=== PATIENT | male | born 1970 | race Caucasian/White ===

== ENCOUNTER 2021-01-05 17:38 | Emergency (ER) | payer OTHER ==
[~2021-01-05] VITALS: Ht 177 cm; Wt 79.0 kg
[2021-01-05] MEDS ORDERED: NS IV 1000 ML 1,000 ML IV ONE (18:00)
--- NOTE | 2021-01-05 18:03 | ED GU-Male ---
General Chief Complaint: - Urinary Stated Complaint: GROIN BURNING,RT LOWER BACK PAIN History of Present Illness Date Seen by Provider: Jan 05, 2021 Time Seen by Provider: 17:58 Initial Comments Mr. Hernandez is a 50-year-old male who presented to the [facility] ED for back and groin pain. He states he has been having right-sided back pain for about 1 week but 2-3 hours ago he had "burning at the tip of my weiner" with severe right back pain. He has a history of kidney stones in the past and states this feels similar to previous occurrences. He states he was unable to drive himself to the ED and required assistance getting here. Prior to coming, his pain was an 8/10 but is now 2-3/10. He has some associated nausea without vomiting. Denies hematuria or dysuria, chest pain, shortness of breath, difficulty swallowing, but does admit to feeling "hot". His previous kidney stones did not require any procedures or stent placements to assist with passage of the stone. Severity/Quality: moderate Location: right flank Radiation: RLQ Activities at Onset: none Prior Genitourinary Problems: similar symptoms Associated Symptoms: diaphoresis, fever/chills (MAIDA SWANSON,) Allergies and Home Medications Allergies Coded Allergies: No Known Drug Allergies (Unverified , 01/05/21) Patient Home Medication List Home Medication List Reviewed: Yes (MAIDA SWANSON,) Home Medication List Reviewed: Yes (SIENNA SILVEIRA MD) Review of Systems Review of Systems Constitutional: diaphoresis EENTM: No blurred vision, No throat swelling Respiratory: No cough, No short of breath Cardiovascular: No chest pain, No palpitations Gastrointestinal: abdominal pain (RLQ), nausea Genitourinary: burning; denies hematuria Musculoskeletal: back pain Skin: No dryness, No rash Psychiatric/Neurological: No Symptoms Reported Endocrine: No Symptoms Reported (MAIDA SWANSON,) Constitutional: No chills, No fever Gastrointestinal: abdominal pain (RLQ), nausea Genitourinary: burning; denies hematuria (SIENNA SILVEIRA MD) All Other Systemes Reviewed Negative Unless Noted: Yes (SIENNA SILVEIRA MD) Past Qpxymlr-Imzpje-Ymgwfi Hx Past Med/Social Hx: Reviewed Nursing Past Med/Soc Hx (SIENNA SILVEIRA MD) Patient Social History Alcohol Use: Denies Use Smoking Status: Never a Smoker (MAIDA SWANSON,) Past Medical History Orthopedic (right knee laparoscopy 09/2020) Respiratory: No Cardiac: Yes Hypertension Neurological: No Genitourinary: Yes Kidney Stones Gastrointestinal: No Musculoskeletal: Yes Chronic Back Pain Endocrine: No HEENT: No Cancer: No Psychosocial: No (MAIDA SWANSON,) Family Medical History Reviewed Nursing Family Hx (SIENNA SILVEIRA MD) Heart Disease (MAIDA SWANSON,) Physical Exam Vital Signs Vital Signs - First Documented 01/05/21 17:41 Temp 36.7 Pulse 90 Resp 16 B/P (MAP) 138/69 (92) Pulse Ox 98 O2 Delivery Room Air (SIENNA SILVEIRA MD) Vital Signs Capillary Refill : (MAIDA SWANSON) Height, Weight, BMI Height: '" Weight: lbs. oz. kg; BMI Method: General Appearance: WD/WN, no apparent distress HEENT: PERRL/EOMI Neck: supple, normal inspection Cardiovascular: regular rate, rhythm, no murmur Respiratory: lungs clear, normal breath sounds Gastrointestinal: normal bowel sounds, non tender Back: normal inspection, no CVA tenderness Extremities: no pedal edema, normal capillary refill Neurologic/Psychiatric: alert, oriented x 3 Skin: normal color, warm/dry (MAIDA SWANSON) General Appearance: WD/WN Cardiovascular: regular rate, rhythm, no murmur Respiratory: lungs clear, normal breath sounds Gastrointestinal: non tender, soft Back: no CVA tenderness, no vertebral tenderness Neurologic/Psychiatric: alert, oriented x 3 (SIENNA SILVEIRA MD) Progress/Results/Core Measures Suspected Sepsis SIRS Temperature: Pulse: Respiratory Rate: Blood Pressure / Mean: (MAIDA SWANSON,) Results/Orders Lab Results Laboratory Tests Test 01/05/21 17:41 01/05/21 17:53 Range/Units Urine Color YELLOW Urine Clarity CLEAR Urine pH 6.0 5-9 Urine Specific Dewar 1.020 1.016-1.022 Urine Protein NEGATIVE NEGATIVE Urine Glucose (UA) NEGATIVE NEGATIVE Urine Ketones NEGATIVE NEGATIVE Urine Nitrite NEGATIVE NEGATIVE Urine Bilirubin NEGATIVE NEGATIVE Urine Urobilinogen 0.2 < = 1.0 MG/DL Urine Leukocyte Esterase NEGATIVE NEGATIVE Urine RBC (Auto) 1+ H NEGATIVE Urine RBC RARE /HPF Urine WBC RARE /HPF Urine Squamous Epithelial Cells RARE /HPF Urine Crystals NONE /LPF Urine Bacteria NEGATIVE /HPF Urine Casts NONE /LPF Urine Mucus SMALL H /LPF Urine Culture Indicated NO White Blood Count 5.2 4.3-11.0 10^3/uL Red Blood Count 5.05 4.35-5.85 10^6/uL Hemoglobin 14.0 13.3-17.7 G/DL Hematocrit 42 40-54 % Mean Corpuscular Volume 82 80-99 FL Mean Corpuscular Hemoglobin 28 25-34 PG Mean Corpuscular Hemoglobin Concent 34 32-36 G/DL Red Cell Distribution Width 12.9 10.0-14.5 % Platelet Count 87 L 130-400 10^3/uL Mean Platelet Volume 11.3 H 7.4-10.4 FL Immature Granulocyte % (Auto) 1 % Neutrophils (%) (Auto) 37 L 42-75 % Lymphocytes (%) (Auto) 41 12-44 % Monocytes (%) (Auto) 13 H 0-12 % Eosinophils (%) (Auto) 7 0-10 % Basophils (%) (Auto) 0 0-10 % Neutrophils # (Auto) 1.9 1.8-7.8 X 10^3 Lymphocytes # (Auto) 2.1 1.0-4.0 X 10^3 Monocytes # (Auto) 0.7 0.0-1.0 X 10^3 Eosinophils # (Auto) 0.4 H 0.0-0.3 10^3/uL Basophils # (Auto) 0.0 0.0-0.1 10^3/uL Immature Granulocyte # (Auto) 0.1 0.0-0.1 10^3/uL Sodium Level 135 135-145 MMOL/L Potassium Level 4.9 3.6-5.0 MMOL/L Chloride Level 101 98-107 MMOL/L Carbon Dioxide Level 22 21-32 MMOL/L Anion Gap 12 5-14 MMOL/L Blood Urea Nitrogen 20 H 7-18 MG/DL Creatinine 1.03 0.60-1.30 MG/DL Estimat Glomerular Filtration Rate > 60 BUN/Creatinine Ratio 19 Glucose Level 123 H 70-105 MG/DL Calcium Level 9.3 8.5-10.1 MG/DL Corrected Calcium 9.0 8.5-10.1 MG/DL Total Bilirubin < 0.2 0.1-1.0 MG/DL Aspartate Amino Transf (AST/SGOT) 32 5-34 U/L Alanine Aminotransferase (ALT/SGPT) 40 0-55 U/L Alkaline Phosphatase 71 40-136 U/L Total Protein 7.3 6.4-8.2 GM/DL Albumin 4.4 3.2-4.5 GM/DL (SIENNA SILVEIRA MD) My Orders Orders - SIENNA SILVEIRA MD Cbc With Automated Diff (01/05/21 17:55) Comprehensive Metabolic Panel (01/05/21 17:55) Ua Culture If Indicated (01/05/21 17:55) Ed Iv/Invasive Line Start (01/05/21 17:55) Ns Iv 1000 Ml (Sodium Chloride 0.9%) (01/05/21 18:00) Ct Abdomen/Pelvis Wo (01/05/21 17:55) Phenazopyridine Tablet (Pyridium Tablet) (01/05/21 18:15) (SIENNA SILVEIRA MD) Medications Given in ED Current Medications Medications Dose Ordered Sig/Tracy Route Start Time Stop Time Status Last Admin Dose Admin Phenazopyridine HCl 100 mg ONCE ONCE PO 01/05/21 18:15 01/05/21 18:16 DC 01/05/21 18:21 100 MG Sodium Chloride 1,000 ml @ 0 mls/hr Q0M ONCE IV 01/05/21 18:00 01/05/21 18:01 DC 01/05/21 18:07 1,000 MLS/HR (SIENNA SILVEIRA MD) Vital Signs/I&O 01/05/21 17:41 Temp 36.7 Pulse 90 Resp 16 B/P (MAP) 138/69 (92) Pulse Ox 98 O2 Delivery Room Air (SIENNA SILVEIRA MD) Vital Signs/I&O Capillary Refill : (MAIDA SWANSON,) Progress Note : Time: 18:05 Progress Note Due to patient having a history of kidney stones, will order non-contrast CT for further work up along with CBC, CMP, UA. As of now, patient denies being in severe pain. Will monitor for development. Start NS for hydration. (MAIDA SWANSON,) Progress Note : Progress Note I have seen and evaluated the patient and agree with above except as indicated. I have directed the plan of care. Patient is here with flank pain and penile pain after urination. Does have history of kidney stones and feels like this may be what the problem is. Denies blood in the urine. Evaluation as above. We will check labs, UA and get noncontrast CT. Pain is markedly improved. Normal saline 1 L bolus. No indication for pain medicine currently. Monitor patient. 1919: Stone noted and pain is resolved. Stone is in the bladder. We will initiate outpatient antibiotics. Discharged home with return precautions. Patient and family verbalized understanding of instructions and agreement with plan. (SIENNA SILVEIRA MD) Diagnostic Imaging Diagonstic Imaging: CT Plain Films/CT/US/NM/MRI: abdomen Comments [facility], [place] NAME: COURTNEY HERNANDEZ [facility] REC#: [id number] PT STATUS: REG ER : 1970 PHYSICIAN: SIENNA SILVEIRA MD ADMIT DATE: 01/05/21/ER FS Draft Date of Exam:01/05/21 CT ABDOMEN/PELVIS WO PROCEDURE: CT abdomen and pelvis without contrast. TECHNIQUE: Multiple contiguous axial images were obtained through the abdomen and pelvis without the use of intravenous contrast. Auto Exposure Controls were utilized during the CT exam to meet ALARA standards for radiation dose reduction. INDICATION: Right low back pain. History of kidney stones. COMPARISON: None FINDINGS: The lung bases are clear. The heart is normal in size. The liver demonstrates no focal lesions. The spleen appears normal. A small splenule is noted. The pancreas is normal. The adrenal glands appear normal. There is no significant hydronephrosis bilaterally. Multiple calculi are seen in the kidneys bilaterally which are nonobstructing, largest on the right measuring up to 4 mm and the largest on the left measuring up to 3 mm. No calculi are seen along the course of the ureters bilaterally. There is a 3 mm calculus in the midline of the bladder near the outlet The bowel loops are nondistended without obstruction. The appendix is not seen. No free fluid or free air is seen. No acute osseous abnormality seen. IMPRESSION: 1. A 3 mm calculus in the midline of the urinary bladder, may represent a recently passed stone. 2. Multiple nonobstructing calculi in the kidneys bilaterally. Dictated on workstation # [id number] Dict: 01/05/21 1825 Trans: 01/05/21 1840 VIRAL [id number] Interpreted by: COURTNEY MCINTYRE MD Electronically signed by: (SIENNA SILVEIRA MD) Departure Impression Primary Impression: Kidney stones Disposition: HOME, SELF-CARE Condition: Improved Departure-Patient Inst. Referrals: OTHER,UNLISTED (PCP) Primary Care Physician ANANYA VILLELA (Family) Primary Care Physician Patient Instructions: Kidney Stones (DC), How to Strain Your Urine Add. Discharge Instructions: All discharge instructions reviewed with patient and/or family. Voiced understanding. Take medications as directed. Continue home medications as previously prescribed. Drink plenty of fluids. Follow-up with your doctor and urologist for recheck and further evaluation. You should strain your urine to evaluate when stone is passed. Return for worse pain, fever, vomiting, weakness, breathing problems or other concerns as needed. Scripts Cephalexin (Cephalexin) 500 Mg Tablet 500 MG PO BID, #14 TAB 0 Refills Prov: SIENNA SILVEIRA MD 01/05/21 MAIDA SWANSON, Jan 05, 2021 18:03 SIENNA SILVEIRA MD Jan 05, 2021 18:53
[2021-01-05 18:13] LABS: HEMATOCRIT 42 % (40-54); MEAN CORPUSCULAR HEMOGLOBIN 28 PG (25-34); MEAN CORPUSCULAR VOLUME 82 FL (80-99); WHITE BLOOD COUNT 5.2 10^3/uL (4.3-11.0)
[2021-01-05 18:14] LABS: BASOPHILS % (AUTO) 0 % (0-10); EOSINOPHILS % (AUTO) 7 % (0-10); LYMPHOCYTES % (AUTO) 41 % (12-44); MEAN CORPUSCULAR HGB CONC 34 G/DL (32-36); MEAN PLATELET VOLUME 11.3 FL (7.4-10.4); MONOCYTES % (AUTO) 13 % (0-12); NEUTROPHILS % (AUTO) 37 % (42-75); PLATELET COUNT 87 10^3/uL (130-400)
[2021-01-05 18:15] LABS: CLARITY,URINE CLEAR; COLOR,URINE YELLOW; GLUCOSE, URINE (UA) NEGATIVE (NEGATIVE); PROTEIN,URINE NEGATIVE (NEGATIVE)
[2021-01-05 18:15] LABS: EOSINOPHILS # (AUTO) 0.4 10^3/uL (0.0-0.3); LYMPHOCYTES # (AUTO) 2.1 X 10^3 (1.0-4.0); MONOCYTES # (AUTO) 0.7 X 10^3 (0.0-1.0); NEUTROPHILS # (AUTO) 1.9 X 10^3 (1.8-7.8)
[2021-01-05] MEDS ORDERED: PHENAZOPYRIDINE 100 MG (PYRIDIUM) TABLET PO ONE (18:15)
[2021-01-05 18:16] LABS: BACTERIA,URINE NEGATIVE /HPF; BILIRUBIN,URINE NEGATIVE (NEGATIVE); KETONES,URINE NEGATIVE (NEGATIVE); LEUKOCYTE ESTERASE ,URINE NEGATIVE (NEGATIVE); NITRITE,URINE NEGATIVE (NEGATIVE); RBC,URINE RARE /HPF; SQUAMOUS EPITHELIAL CELL,UR RARE /HPF; WBC,URINE RARE /HPF
[2021-01-05 18:29] LABS: CHLORIDE 101 MMOL/L (98-107); POTASSIUM 4.9 MMOL/L (3.6-5.0); SODIUM 135 MMOL/L (135-145)
[2021-01-05 18:30] LABS: ALANINE AMINOTRANSFERASE 40 U/L (0-55); ALBUMIN 4.4 GM/DL (3.2-4.5); ALKALINE PHOSPHATASE 71 U/L (40-136); BILIRUBIN,TOTAL < 0.2 MG/DL (0.1-1.0); BUN/CREATININE RATIO 19; CALCIUM 9.3 MG/DL (8.5-10.1); CARBON DIOXIDE 22 MMOL/L (21-32); CREATININE SERUM 1.03 MG/DL (0.60-1.30); GFR ESTIMATED > 60; GLUCOSE 123 MG/DL (70-105); TOTAL PROTEIN 7.3 GM/DL (6.4-8.2)
--- NOTE | 2021-01-05 18:40 | Diagnostic Imaging Report ---
PROCEDURE: CT abdomen and pelvis without contrast. TECHNIQUE: Multiple contiguous axial images were obtained through the abdomen and pelvis without the use of intravenous contrast. Auto Exposure Controls were utilized during the CT exam to meet ALARA standards for radiation dose reduction. INDICATION: Right low back pain. History of kidney stones. COMPARISON: None FINDINGS: The lung bases are clear. The heart is normal in size. The liver demonstrates no focal lesions. The spleen appears normal. A small splenule is noted. The pancreas is normal. The adrenal glands appear normal. There is no significant hydronephrosis bilaterally. Multiple calculi are seen in the kidneys bilaterally which are nonobstructing, largest on the right measuring up to 4 mm and the largest on the left measuring up to 3 mm. No calculi are seen along the course of the ureters bilaterally. There is a 3 mm calculus in the midline of the bladder near the outlet The bowel loops are nondistended without obstruction. The appendix is not seen. No free fluid or free air is seen. No acute osseous abnormality seen. IMPRESSION: 1. A 3 mm calculus in the midline of the urinary bladder, may represent a recently passed stone. 2. Multiple nonobstructing calculi in the kidneys bilaterally. Dictated by: Dictated on workstation # [id number]
[2021-01-05] MEDS ORDERED: CEPH500T PO (19:29)
[2021-01-05 19:31] VITALS: BP 130/89
== END 2021-01-05 19:34 | disposition home or self-care (01) ==
LOC: EDUNIT# 17:38 → ER FS 17:40
DX: N20.0 Calculus of kidney (principal); Z82.49 Family history of ischemic heart disease and other diseases of the circulatory system
CPT/HCPCS: 36415; 74176; 80053; 81000; 85025

== ENCOUNTER 2021-08-15 08:07 | Emergency (ER) | payer OTHER ==
[~2021-08-15] VITALS: Ht 172 cm; Wt 100.0 kg
[~2021-08-15 08:07] MED LIST: CEPH500T PO
--- NOTE | 2021-08-15 08:39 | ED General ---
General Chief Complaint: Lower Extremity Stated Complaint: LT KNEE INJ Nursing Triage Note: PTS LEFT KNEE GAVE OUT ON HIM SATURDAY AND HE HIT IT ON THE GROUND. Source of Information: Patient History of Present Illness Date Seen by Provider: Aug 15, 2021 Time Seen by Provider: 08:21 Initial Comments 51-year-old male presenting with complaints of left knee pain. He states on Saturday, August 12 he was walking across a room on hardwood floor and his knee suddenly went out on him. He had a loud popping or cracking noise. He has had severe pain ever since. He has been able to bear weight on the leg. He does have chronic arthritis with both knees. He has been using Alejandro bandage for support with his knee. He states that majority of the pain is along the back of his knee and the lateral aspect. The pain is worse when he tries to bear weight and he occasionally has the knee feel like it is going to give out on him again. With certain movements and positions he has increased pain. He has been [facility] and he also has tramadol for severe pain. [facility] about [facility] and they recommended coming to the emergency department. Timing/Duration: 2-3 Days Severity: Severe Modifying Factors: improves with Medication; worse with Movement Associated Systoms: No Chest Pain, No Cough, No Diaphoresis, No Fever/Chills, No Headaches, No Loss of Appetite, No Malaise, No Nausea/Vomiting, No Rash, No Seizure, No Shortness of Air, No Syncope, No Weakness Allergies and Home Medications Allergies Coded Allergies: No Known Drug Allergies (Unverified , 01/05/21) Patient Home Medication List Home Medication List Reviewed: Yes Cephalexin (Cephalexin) 500 Mg Tablet, 500 MG PO BID Prescribed by: SIENNA SILVEIRA on 01/05/211928 Review of Systems Review of Systems Constitutional: no symptoms reported EENTM: no symptoms reported Respiratory: no symptoms reported Cardiovascular: no symptoms reported Gastrointestinal: no symptoms reported Genitourinary: no symptoms reported Musculoskeletal: see HPI Skin: No change in color Psychiatric/Neurological: Denies Numbness Past Bdzkqnd-Tbfrfq-Wawxhk Hx Patient Social History Tobacco Use?: No Use of E-Cig and/or Vaping dev: No Substance use?: No Alcohol Use?: No Pt feels they are or have been: No Immunizations Up To Date First/Initial COVID19 Vaccinat: AUG 2020 COVID19 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: ILIANA Seasonal Allergies Seasonal Allergies: No Past Medical History Surgeries: Yes (KNEE) Appendectomy, Orthopedic Respiratory: No Cardiac: Yes Coronary Artery Disease, High Cholesterol, Hypertension Neurological: No Genitourinary: Yes Kidney Stones Gastrointestinal: No Musculoskeletal: Yes Arthritis (Bilateral knees), Chronic Back Pain Endocrine: No HEENT: No Cancer: No Psychosocial: No Blood Disorders: No Family Medical History Heart Disease Physical Exam Vital Signs Vital Signs - First Documented 08/15/21 08:20 Temp 36.1 Pulse 84 Resp 18 B/P (MAP) 164/94 (117) Pulse Ox 97 O2 Delivery Room Air Capillary Refill : Less Than 3 Seconds Height, Weight, BMI Height: '" Weight: lbs. oz. kg; 33.00 BMI Method: General Appearance: No Apparent Distress, WD/WN Cardiovascular: Normal Peripheral Pulses Extremity: Normal Capillary Refill, No Calf Tenderness, No Pedal Edema; No Swelling (no joint effusion, swelling, edema, ecchymosis, erythema); Other (Normal range of motion of the left knee with negative anterior and posterior drawer sign. He has no increased pain with varus or valgus stress. He does have laxity with stress in both varus and valgus positions.) Neurologic/Psychiatric: Alert, Oriented x3, No Motor/Sensory Deficits, automated process operator II- XII Norm as Tested Skin: Normal Color, Warm/Dry Procedures/Interventions Splinting and Joint Reduction : Location: Left lower extremity Pre-Proc Neuro Vasc Exam: normal Post-Proc Neuro Vasc Exam: normal Progress Patient already had his Alejandro bandage from home on his left knee and a knee immobilizer was placed over this. Patient stated that this did help improve his pain. Counseled on follow-up and return precautions. Immobilizers: 24 inch Knee Progress/Results/Core Measures Suspected Sepsis SIRS Temperature: Pulse: 84 Respiratory Rate: 18 Blood Pressure 164 /94 Mean: 117 Results/Orders My Orders Orders - SARAY CÁRDENAS MD Knee 3 View Left (08/15/21 08:33) Knee Immobilizer (08/15/21 08:33) Vital Signs/I&O 08/15/21 08/15/21 08:20 09:49 Temp 36.1 36.1 Pulse 84 80 Resp 18 18 B/P (MAP) 164/94 (117) 158/88 Pulse Ox 97 99 O2 Delivery Room Air Room Air Capillary Refill : Less Than 3 Seconds Blood Pressure Mean: 117 Progress Note #1: Progress Note With his fall and increased pain will obtain x-rays for evaluating his knee for bony injury. Advised that he may end up needing an MRI with orthopedics or his primary. We will anticipate placing patient in a knee immobilizer for additional stabilization beyond the Alejandro bandage he has been using. Progress Note #2: Progress Note X-rays did not show any acute bony fracture of the left knee. He was having pain in the lateral and posterior aspect not over the patella however the radiologist was concerned there could be some chronic changes to the patella. Counseled patient on findings and advised that MRI with the [facility] with orthopedics would be the next step. In the meantime we will treat with Alejandro bandage and knee immobilizer to help stabilize his knee. Continue with anti- inflammatories of diclofenac that he already takes at home and occasional ibuprofen. For severe pain in the tramadol. Ice and elevate the knee to help with inflammation and pain as well. Diagnostic Imaging Diagonstic Imaging: Xray Plain Films/CT/US/NM/MRI: knee Comments [facility] [place], [place] NAME: COURTNEY HERNANDEZ [facility] REC#: [id number] PT STATUS: REG ER : 1970 PHYSICIAN: SARAY CÁRDENAS MD ADMIT DATE: 08/15/21/ER FS Draft Date of Exam:08/15/21 KNEE 3 VIEW LEFT INDICATION: Knee pain. Recent fall. COMPARISON: None FINDINGS: Multiple radiographic views of the left knee were obtained. There is somewhat irregular appearance to the superolateral margins of the patella, only well visualized on the AP view. Margins are well-corticated. Overall appearance is suggestive of chronic deformity. No other acute appearing osseous abnormality is seen. Joint spaces are intact. There is no large joint effusion. Mild tricompartmental osteoarthritic changes are also present. IMPRESSION: 1. Probable chronic deformity involving the superolateral margins of the patella. Correlation with point tenderness, however is recommended. If there is pain in this area, sunrise view may be of benefit. 2. Background mild tricompartmental osteoarthritis. Dictated on workstation # [id number] Dict: 08/15/21902 Trans: 08/15/21906 [id number] Interpreted by: RAMON ASHRAF MD Electronically signed by: Reviewed: Reviewed by Me Departure Impression Primary Impression: Left lateral knee pain Additional Impressions: Posterior left knee pain Fall Qualified Codes: W19.XXXA - Unspecified fall, initial encounter Disposition: HOME, SELF-CARE Condition: Stable Departure-Patient Inst. Decision time for Depature: 09:38 Referrals: ANANYA VILLELA (PCP) Primary Care Physician NO,LOCAL PHYSICIAN (Family) Primary Care Physician Patient Instructions: Knee Brace ED, Knee Pain ED Add. Discharge Instructions: Use knee immobilizer to give additional support to your knee. Some people find it helpful to wear this while sleeping as well so that it is giving support and helps when you get up to use the bathroom overnight. Continue with anti-inflammatory medicine and tramadol for severe pain. Check with [facility] about MRI or Orthopedics consult to evaluate for soft tissue injury such as meniscus or tendon/ligament partial tear. All discharge instructions reviewed with patient and/or family. Voiced understanding. SARAY CÁRDENAS MD Aug 15, 2021 08:39
--- NOTE | 2021-08-15 09:07 | Diagnostic Imaging Report ---
INDICATION: Knee pain. Recent fall. COMPARISON: None FINDINGS: Multiple radiographic views of the left knee were obtained. There is somewhat irregular appearance to the superolateral margins of the patella, only well visualized on the AP view. Margins are well-corticated. Overall appearance is suggestive of chronic deformity. No other acute appearing osseous abnormality is seen. Joint spaces are intact. There is no large joint effusion. Mild tricompartmental osteoarthritic changes are also present. IMPRESSION: 1. Probable chronic deformity involving the superolateral margins of the patella. Correlation with point tenderness, however is recommended. If there is pain in this area, sunrise view may be of benefit. 2. Background mild tricompartmental osteoarthritis. Dictated by: Dictated on workstation # [id number]
[2021-08-15 09:49] VITALS: BP 158/88
== END 2021-08-15 09:47 | disposition home or self-care (01) ==
LOC: EDUNIT# 08:07 → ER FS 08:09
DX: M25.562 Pain in left knee (principal); I10 Essential (primary) hypertension
CPT/HCPCS: 73562

== ENCOUNTER 2021-08-22 08:18 | Emergency (ER) | payer OTHER ==
[~2021-08-22] VITALS: Ht 172 cm; Wt 100.0 kg
--- NOTE | 2021-08-22 08:59 | ED Cough/URI ---
General Chief Complaint: Cough/Cold/Flu Symptoms Stated Complaint: SWOLLEN LYMPH NODES; COUGH; NASAL DRAINAGE; FEVER Source: patient Exam Limitations: no limitations History of Present Illness Date Seen by Provider: Aug 22, 2021 Time Seen by Provider: 08:30 Initial Comments Patient is a 51-year-old male who presents with a temperature of 101.9, cough, sore throat, nasal congestion painful swallowing. Symptoms began 3 days ago. Reports difficulty swallowing secondary to pain and swollen lymph nodes. Denies shortness of breath wheezing, productive cough. Patient is vaccinated with a JJ vaccine in the spring 2020. He has not been treated for Covid. Denies chest pain chest tightness, abdominal pain nausea vomiting sweats. No leg pain or swelling. No other acute symptoms or complaints. Patient was evaluated at the [place] [facility] referred to the ED for additional evaluation. Timing/Duration: getting worse Severity/Quality: dry cough Prior Episodes/Possible Cause: other Modifying Factors: Improves With Other Associated Symptoms: other Allergies and Home Medications Allergies Coded Allergies: No Known Drug Allergies (Unverified , 01/05/21) Patient Home Medication List Home Medication List Reviewed: Yes Cephalexin (Cephalexin) 500 Mg Tablet, 500 MG PO BID Prescribed by: SIENNA SILVEIRA on 01/05/211928 Review of Systems Review of Systems Constitutional: see HPI EENTM: see HPI Respiratory: see HPI Cardiovascular: see HPI Gastrointestinal: see HPI Genitourinary: see HPI Musculoskeletal: see HPI Skin: see HPI Psychiatric/Neurological: See HPI Hematologic/Lymphatic: See HPI Immunological/Allergic: see HPI Past Bznmgvo-Rcfimo-Papsxk Hx Patient Social History Tobacco Use?: Yes Smoking Status: Never a Smoker Substance use?: No Alcohol Use?: Yes Alcohol Frequency: Rarely Pt feels they are or have been: No Immunizations Up To Date First/Initial COVID19 Vaccinat: December 2020 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: [employer] Seasonal Allergies Seasonal Allergies: No Past Medical History Surgeries: Yes (KNEE) Appendectomy, Orthopedic Respiratory: No Cardiac: Yes Coronary Artery Disease, High Cholesterol, Hypertension Neurological: No Genitourinary: Yes Kidney Stones Gastrointestinal: No Musculoskeletal: Yes Arthritis, Chronic Back Pain Endocrine: No HEENT: No Cancer: No Psychosocial: No Blood Disorders: No Family Medical History Heart Disease Physical Exam Vital Signs - First Documented 08/22/21 08:37 Temp 36.4 Pulse 92 Resp 13 B/P (MAP) 148/93 (111) Pulse Ox 100 O2 Delivery Room Air Capillary Refill : Less Than 3 Seconds Height: '" Weight: lbs. oz. kg; 33.00 BMI Method: General Appearance: WD/WN, other Eyes: Bilateral Eye EOMI HEENT: PERRL/EOMI, TMs normal, pharyngeal erythema Neck: full range of motion, supple, other (Cervical lymphadenopathy) Respiratory: chest non-tender, lungs clear, normal breath sounds Cardiovascular: normal peripheral pulses, no edema, tachycardia Gastrointestinal: non tender, soft Extremities: normal range of motion, non-tender Neurologic/Psychiatric: oriented x 3 Skin: normal color Focused Exam Sepsis Stage: Ruled Out Progress/Results/Core Measures Suspected Sepsis SIRS Temperature: Pulse: 92 Respiratory Rate: 13 Blood Pressure 148 /93 Mean: 111 Results/Orders Lab Results Laboratory Tests Test 08/22/21 08:32 Range/Units Influenza Type A Antigen NEGATIVE NEGATIVE Influenza Type B Antigen NEGATIVE NEGATIVE Group A Streptococcus Screen NEGATIVE NEGATIVE My Orders Orders - KRYSTIAN CARDOZA DO Rapid Strep A Screen (08/22/21 08:32) Influenza A & B Antigens (08/22/21 08:32) Chest 1 View Ap/Pa Only (08/22/21 08:41) Vital Signs/I&O 08/22/21 08/22/21 08:37 08:37 Temp 36.4 Pulse 92 Resp 13 B/P (MAP) 148/93 (111) Pulse Ox 100 O2 Delivery Room Air Room Air Capillary Refill : Less Than 3 Seconds Blood Pressure Mean: 111 Departure Communication (Admissions) Chest x-ray: No acute cardiopulmonary disease. Influenza, strep negative. Exam concerning for Covid without evidence of respiratory compromise. Will place on Z-Jose Raul prednisone, Mucinex D and ProAir. 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 Impression Primary Impression: Acute pharyngitis Disposition: 01 HOME, SELF-CARE Condition: Stable Departure-Patient Inst. Decision time for Depature: 09:11 Referrals: ANANYA VILLELA (PCP) Primary Care Physician NO,LOCAL PHYSICIAN (Family) Primary Care Physician Patient Instructions: Viral Upper Respiratory Infection, Adult (DC) Add. Discharge Instructions: Please increase fluids, take newly prescribed medications as directed and obtain outpatient [id number] Covid testing at local pharmacy or PCPs office. Follow-up with your PCP in 3 to 5 days for reevaluation if symptoms persist. Return to the ED if new or worsening symptoms All discharge instructions reviewed with patient and/or family. Voiced understanding. Scripts Albuterol Sulfate (PROAIR HFA) 1 Puff Puff 2 PUFF IH Q4H, #1 EA 1 PUFF = 90 MCG Prov: KRYSTIAN CARDOZA DO 08/22/21 Guaifenesin/Pseudoephedrne HCl (Mucinex D ER 600-60 mg Tablet) 1 Each Tab.er.12h 1 EACH PO BID, #20 TAB Prov: KRYSTIAN CARDOZA DO 08/22/21 Azithromycin (Zithromax) 250 Mg Tablet 250 MG PO UD, #6 TAB TAKE 2 TABLETS TODAY, THEN TAKE 1 TABLET DAILY FOR 4 MORE DAYS Prov: KRYSTIAN CARDOZA DO 08/22/21 Prednisone (Prednisone) 20 Mg Tab 40 MG PO DAILY, #6 TAB 0 Refills Prov: KRYSTIAN CARDOZA DO 08/22/21 KRYSTIAN CARDOZA DO Aug 22, 2021 08:59
--- NOTE | 2021-08-22 09:02 | Diagnostic Imaging Report ---
EXAMINATION: Chest 1 view HISTORY: Cough COMPARISON: None available. FINDINGS: Heart size and pulmonary vasculature are normal. The lungs are clear without consolidation, pleural effusion, or pneumothorax. The osseous structures are intact. IMPRESSION: 1. No acute radiographic abnormality in the chest. Dictated by: Dictated on workstation # [id number]
[2021-08-22 09:09] VITALS: BP 148/93
[2021-08-22] MEDS ORDERED: RT-ALBUINH IH (09:13)
[2021-08-22] MEDS ORDERED: GUAI-370 PO (09:13)
[2021-08-22] MEDS ORDERED: AZIT250T PO (09:13)
[2021-08-22] MEDS ORDERED: PRD20T PO (09:13)
== END 2021-08-22 09:18 | disposition home or self-care (01) ==
LOC: EDUNIT# 08:18 → ER FS 08:19
DX: J02.9 Acute pharyngitis, unspecified (principal); I10 Essential (primary) hypertension; Z72.0 Tobacco use
CPT/HCPCS: 71045; 87430; 87804

== ENCOUNTER 2021-09-09 15:48 | Emergency (ER) | payer OTHER ==
[~2021-09-09 15:48] MED LIST changes: +AZIT250T PO; +GUAI-370 PO; +PRD20T PO; +RT-ALBUINH IH
--- NOTE | 2021-09-09 16:08 | ED GI ---
General Chief Complaint: Abdominal/GI Problems Stated Complaint: ABD PAIN; VOMITING; DIARRHEA History of Present Illness Date Seen by Provider: Sep 09, 2021 Time Seen by Provider: 16:08 Initial Comments 51-year-old male presents with some abdominal cramping/bloating, nausea vomiting x1 a couple days ago and diarrhea. Patient reports that the bloating and cramping is been going on for couple weeks that he has not had any vomiting for couple days but still has nausea. Patient reports diarrhea. He presents today because he "just cannot handle anymore" patient was seen here on 08/22/2021 with concerns of Covid by the physician is seen him at that time. Patient was instructed to go get an outpatient rapid Covid test but it did not. He was started on azithromycin at that time. Patient reports no fever, cough, chest pain Allergies and Home Medications Allergies Coded Allergies: No Known Drug Allergies (Unverified , 01/05/21) Patient Home Medication List Home Medication List Reviewed: Yes Albuterol Sulfate (Proair Hfa) 1 Puff Puff, 2 PUFF IH Q4H Prescribed by: KRYSTIAN CARDOZA on 08/22/21912 Azithromycin (Zithromax) 250 Mg Tablet, 250 MG PO UD Prescribed by: KRYSTIAN CARDOZA on 08/22/21912 Cephalexin (Cephalexin) 500 Mg Tablet, 500 MG PO BID Prescribed by: SIENNA SILVEIRA on 01/05/211928 Guaifenesin/Pseudoephedrne HCl (Mucinex D ER 600-60 mg Tablet) 1 Each Tab.er.12h, 1 EACH PO BID Prescribed by: KRYSTIAN CARDOZA on 08/22/21913 Prednisone (Prednisone) 20 Mg Tab, 40 MG PO DAILY Prescribed by: KRYSTIAN CARDOZA on 08/22/21912 Review of Systems Review of Systems Constitutional: No chills, No fever Respiratory: Denies Cough, Denies Shortness of Air Cardiovascular: Denies Chest Pain Gastrointestinal: See HPI, Diarrhea, Nausea, Vomiting Genitourinary: No Symptoms Reported Musculoskeletal: no symptoms reported Skin: no symptoms reported Psychiatric/Neurological: No Symptoms Reported Endocrine: No Symptoms Reported Hematologic/Lymphatic: No Symptoms Reported Past Lmgbmwf-Txykwn-Tbsddx Hx Immunizations Up To Date First/Initial COVID19 Vaccinat: December 2020 Seasonal Allergies Seasonal Allergies: No Past Medical History Surgeries: Yes (KNEE) Appendectomy, Orthopedic Respiratory: No Cardiac: Yes Coronary Artery Disease, High Cholesterol, Hypertension Neurological: No Genitourinary: Yes Kidney Stones Gastrointestinal: No Musculoskeletal: Yes Arthritis, Chronic Back Pain Endocrine: No HEENT: No Cancer: No Psychosocial: No Blood Disorders: No Family Medical History Heart Disease Physical Exam Vital Signs Capillary Refill : Height/Weight/BMI Height: '" Weight: lbs. oz. kg; 33.00 BMI Method: General Appearance: WD/WN, no apparent distress Respiratory: lungs clear, normal breath sounds, no respiratory distress Cardiovascular: normal peripheral pulses, regular rate, rhythm, no edema Gastrointestinal: non tender, soft Extremities: normal range of motion, non-tender Back: normal inspection Neurologic/Psychiatric: alert, normal mood/affect, oriented x 3 Skin: normal color, warm/dry Progress/Results/Core Measures Results/Orders Lab Results Laboratory Tests Test 09/09/21 16:35 09/09/21 16:37 Range/Units White Blood Count 13.8 H 4.3-11.0 10^3/uL Red Blood Count 5.58 H 4.30-5.52 10^6/uL Hemoglobin 15.5 13.3-17.7 g/dL Hematocrit 46 40-54 % Mean Corpuscular Volume 83 80-99 fL Mean Corpuscular Hemoglobin 28 25-34 pg Mean Corpuscular Hemoglobin Concent 34 32-36 g/dL Red Cell Distribution Width 13.0 10.0-14.5 % Platelet Count 242 130-400 10^3/uL Mean Platelet Volume 9.2 9.0-12.2 fL Immature Granulocyte % (Auto) 1 % Neutrophils (%) (Auto) 58 42-75 % Lymphocytes (%) (Auto) 20 12-44 % Monocytes (%) (Auto) 6 0-12 % Eosinophils (%) (Auto) 16 H 0-10 % Basophils (%) (Auto) 0 0-10 % Neutrophils # (Auto) 8.0 H 1.8-7.8 X 10^3 Lymphocytes # (Auto) 2.7 1.0-4.0 X 10^3 Monocytes # (Auto) 0.8 0.0-1.0 X 10^3 Eosinophils # (Auto) 2.2 H 0.0-0.3 10^3/uL Basophils # (Auto) 0.0 0.0-0.1 10^3/uL Immature Granulocyte # (Auto) 0.2 H 0.0-0.1 10^3/uL Neutrophils % (Manual) 50 % Lymphocytes % (Manual) 29 % Monocytes % (Manual) 5 % Eosinophils % (Manual) 16 % Sodium Level 137 135-145 MMOL/L Potassium Level 4.1 3.6-5.0 MMOL/L Chloride Level 101 98-107 MMOL/L Carbon Dioxide Level 25 21-32 MMOL/L Anion Gap 11 5-14 MMOL/L Blood Urea Nitrogen 11 7-18 MG/DL Creatinine 1.20 0.60-1.30 MG/DL Estimat Glomerular Filtration Rate 64 BUN/Creatinine Ratio 9 Glucose Level 127 H 70-105 MG/DL Calcium Level 9.3 8.5-10.1 MG/DL Corrected Calcium 9.3 8.5-10.1 MG/DL Total Bilirubin 0.2 0.1-1.0 MG/DL Aspartate Amino Transf (AST/SGOT) 15 5-34 U/L Alanine Aminotransferase (ALT/SGPT) 22 0-55 U/L Alkaline Phosphatase 72 40-136 U/L C-Reactive Protein < 0.30 <0.50 MG/DL Total Protein 6.9 6.4-8.2 GM/DL Albumin 4.0 3.2-4.5 GM/DL Lipase 36 8-78 U/L Urine Color YELLOW Urine Clarity CLERA Urine pH 6.0 5-9 Urine Specific [place] 1.010 L 1.016-1.022 Urine Protein NEGATIVE NEGATIVE Urine Glucose (UA) NEGATIVE NEGATIVE Urine Ketones NEGATIVE NEGATIVE Urine Nitrite NEGATIVE NEGATIVE Urine Bilirubin NEGATIVE NEGATIVE Urine Urobilinogen 0.2 < = 1.0 MG/DL Urine Leukocyte Esterase NEGATIVE NEGATIVE Urine RBC (Auto) NEGATIVE NEGATIVE Urine RBC 0-2 /HPF Urine WBC NONE /HPF Urine Squamous Epithelial Cells NONE /HPF Urine Crystals NONE /LPF Urine Bacteria TRACE /HPF Urine Casts NONE /LPF Urine Mucus NEGATIVE /LPF Urine Culture Indicated NO My Orders Orders - EDUARDO MUIRVOR L DO Cbc With Automated Diff (09/09/21 16:17) Comprehensive Metabolic Panel (09/09/21 16:17) Lipase (09/09/21 16:17) Ua Culture If Indicated (09/09/21 16:17) Crp Fs (09/09/21 16:17) Lactated Ringers (Lr 1000 Ml Iv Solution (09/09/21 16:17) Famotidine Injection (Pepcid Injection) (09/09/21 16:17) Ed Iv/Invasive Line Start (09/09/21 16:17) Acute Abd Series (09/09/21 16:17) Manual Differential (09/09/21 16:35) Progress Progress Note : Progress Note Patient's stomach cramps went to 0 following administration of the Pepcid. Patient does have a slightly elevated WBC but I suspect is reactive or some mild concentrated blood. Patient otherwise normal labs with a negative CRP. Patient x-ray shows some stool and gas. Patient symptoms seem much more consistent with a gastritis and reflux versus an infectious process, especially with relief with Pepcid. Patient was offered a CT but felt he did not need one at this time. Discussed with him that if he thinks symptoms worsen or return he can either follow-up with his primary care provider or return to the ER. Recommended he start with Pepcid twice daily and then add either omeprazole or pantoprazole daily as directed on package. Discussed with him that this will take a few days to have effect. Patient stable and discharged. Discussed with patient that he can return if symptoms become significantly worse and we can CT him at that time Diagnostic Imaging Diagonstic Imaging: Xray Plain Films/CT/US/NM/MRI: abdomen Comments Date of Exam:09/09/21 ACUTE ABD SERIES EXAMINATION: Abdominal series and chest radiograph. HISTORY: N/V/D. COMPARISON: 01/05/2021. FINDINGS: Heart size and pulmonary vasculature are normal. The lungs are clear without consolidation, pleural effusion or pneumothorax. The osseous structures are intact. There is moderate amount of gas and stool throughout the colon. Nonobstructive bowel gas pattern. No radiopaque foreign body. The osseous structures are intact. IMPRESSION: No acute abnormality in the chest or abdomen. Reviewed: Reviewed by Me Departure Impression Primary Impression: Gastritis Qualified Codes: K29.70 - Gastritis, unspecified, without bleeding Additional Impression: Reflux gastritis Disposition: 01 HOME, SELF-CARE Condition: Stable Departure-Patient Inst. Referrals: ANANYA VILLELA (PCP) Primary Care Physician NO,LOCAL PHYSICIAN (Family) Primary Care Physician Patient Instructions: Acid Reflux and GERD in Adults (DC), Gastritis ED Add. Discharge Instructions: [id number]-[id number] Pepcid twice daily Omeprazole, pantoprazole or another praise all as directed on package Follow-up with your primary care provider towards in the next week for reevaluation Return to the ER as needed if symptoms significantly worsen All discharge instructions reviewed with patient and/or family. Voiced understanding. NELLY MUIR DO Sep 09, 2021 16:08
[2021-09-09] MEDS ORDERED: LACTATED RINGERS 1,000 ML IV STA (16:17)
[2021-09-09] MEDS ORDERED: FAMOTIDINE 20MG/2ML IV (PEPCID) IV STA (16:17)
[2021-09-09 16:42] LABS: HEMATOCRIT 46 % (40-54); HEMOGLOBIN 15.5 g/dL (13.3-17.7); LYMPHOCYTES % (AUTO) 20 % (12-44); MEAN CORPUSCULAR HEMOGLOBIN 28 pg (25-34); MEAN CORPUSCULAR HGB CONC 34 g/dL (32-36); MEAN CORPUSCULAR VOLUME 83 fL (80-99); MEAN PLATELET VOLUME 9.2 fL (9.0-12.2); MONOCYTES % (AUTO) 6 % (0-12); NEUTROPHILS % (AUTO) 58 % (42-75); PLATELET COUNT 242 10^3/uL (130-400); WHITE BLOOD COUNT 13.8 10^3/uL (4.3-11.0)
[2021-09-09 16:43] LABS: BASOPHILS % (AUTO) 0 % (0-10); EOSINOPHILS # (AUTO) 2.2 10^3/uL (0.0-0.3); EOSINOPHILS % (AUTO) 16 % (0-10); LYMPHOCYTES # (AUTO) 2.7 X 10^3 (1.0-4.0); MONOCYTES # (AUTO) 0.8 X 10^3 (0.0-1.0)
[2021-09-09 16:50] LABS: BACTERIA,URINE TRACE /HPF; BILIRUBIN,URINE NEGATIVE (NEGATIVE); CLARITY,URINE CLERA; COLOR,URINE YELLOW; GLUCOSE, URINE (UA) NEGATIVE (NEGATIVE); KETONES,URINE NEGATIVE (NEGATIVE); LEUKOCYTE ESTERASE ,URINE NEGATIVE (NEGATIVE); NITRITE,URINE NEGATIVE (NEGATIVE); PROTEIN,URINE NEGATIVE (NEGATIVE); RBC,URINE 0-2 /HPF
--- NOTE | 2021-09-09 16:53 | Diagnostic Imaging Report ---
EXAMINATION: Abdominal series and chest radiograph. HISTORY: N/V/D. COMPARISON: 01/05/2021. FINDINGS: Heart size and pulmonary vasculature are normal. The lungs are clear without consolidation, pleural effusion or pneumothorax. The osseous structures are intact. There is moderate amount of gas and stool throughout the colon. Nonobstructive bowel gas pattern. No radiopaque foreign body. The osseous structures are intact. IMPRESSION: No acute abnormality in the chest or abdomen. Dictated by: Dictated on workstation # [id number]
[2021-09-09 16:57] LABS: BUN/CREATININE RATIO 9; CARBON DIOXIDE 25 MMOL/L (21-32); CHLORIDE 101 MMOL/L (98-107); EOSINOPHILS % (MANUAL) 16 %; GFR ESTIMATED 64; GLUCOSE 127 MG/DL (70-105); LYMPHOCYTES % (MANUAL) 29 %; MONOCYTES % (MANUAL) 5 %; NEUTROPHILS % (MANUAL) 50 %; POTASSIUM 4.1 MMOL/L (3.6-5.0); SODIUM 137 MMOL/L (135-145)
[2021-09-09 16:58] LABS: ALANINE AMINOTRANSFERASE 22 U/L (0-55); ALKALINE PHOSPHATASE 72 U/L (40-136); BILIRUBIN,TOTAL 0.2 MG/DL (0.1-1.0); CALCIUM 9.3 MG/DL (8.5-10.1); LIPASE 36 U/L (8-78); TOTAL PROTEIN 6.9 GM/DL (6.4-8.2)
[2021-09-09 17:20] VITALS: BP 110/73
== END 2021-09-09 17:20 | disposition home or self-care (01) ==
LOC: EDUNIT# 15:48 → ER FS 15:50
DX: K29.70 Gastritis, unspecified, without bleeding (principal); I10 Essential (primary) hypertension
CPT/HCPCS: 36415; 74022; 80053; 81000; 83690; 85007; 85027; 86141

== ENCOUNTER 2021-11-28 05:49 | Emergency (ER) | payer OTHER ==
[2021-11-28] MEDS ORDERED: NS IV 1000 ML 1,000 ML IV SCH (06:15)
[2021-11-28 06:21] LABS: BASOPHILS % (AUTO) 0 % (0-10); EOSINOPHILS # (AUTO) 0.1 10^3/uL (0.0-0.3); EOSINOPHILS % (AUTO) 1 % (0-10); HEMATOCRIT 48 % (40-54); HEMOGLOBIN 16.4 g/dL (13.3-17.7); LYMPHOCYTES # (AUTO) 0.5 10^3/uL (1.0-4.0); LYMPHOCYTES % (AUTO) 4 % (12-44); MEAN CORPUSCULAR HEMOGLOBIN 28 pg (25-34); MEAN CORPUSCULAR HGB CONC 35 g/dL (32-36); MEAN CORPUSCULAR VOLUME 82 fL (80-99); MONOCYTES # (AUTO) 0.5 10^3/uL (0.0-1.0); MONOCYTES % (AUTO) 5 % (0-12); NEUTROPHILS % (AUTO) 90 % (42-75); PLATELET COUNT 210 10^3/uL (130-400); WHITE BLOOD COUNT 11.1 10^3/uL (4.3-11.0)
[2021-11-28] MEDS ORDERED: ONDANSETRON 4 MG/2 ML (SDV) Z0FRAN ONE (06:26)
[2021-11-28] MEDS ORDERED: PANTOPRAZOLE 40 MG (PROTONIX) VIAL ONE (06:26)
[2021-11-28] MEDS ORDERED: NS IV 1000 ML 1,000 ML ONE (06:26)
--- NOTE | 2021-11-28 06:29 | ED GI ---
General Chief Complaint: Abdominal/GI Problems Stated Complaint: EMESIS;DIARRHEA;HEADACHE;DEHYDRATION History of Present Illness Date Seen by Provider: Nov 28, 2021 Time Seen by Provider: 06:03 Initial Comments 51 yr M is here with c/o sudden onset of multiple episodes of diarrhea and vomiting which began at 11pm last night. Pt ate food from home, and no one else inhis home was sick. Pt takes weight loss injections which gradually increase in dose over time. Pt reports similar symptoms in the past when the weight loss medication increases in dosage, and he needs to decrease the dose when that occurs. Denies fever, dysuria, chest pain, respiratory symptoms. Pt is unable to keep any food or liquids down, and keeps saying he had almost continuous diarrhea that he has lost 10 pounds in one night. (PASCUAL PEREZ MD) Allergies and Home Medications Allergies Coded Allergies: No Known Drug Allergies (Unverified , 01/05/21) Patient Home Medication List Home Medication List Reviewed: Yes (PASCUAL PEREZ MD) Albuterol Sulfate (Proair Hfa) 1 Puff Puff, 2 PUFF IH Q4H Prescribed by: KRYSTIAN CARDOZA on 08/22/21912 Azithromycin (Zithromax) 250 Mg Tablet, 250 MG PO UD Prescribed by: KRYSTIAN CARDOZA on 08/22/21912 Cephalexin (Cephalexin) 500 Mg Tablet, 500 MG PO BID Prescribed by: SIENNA SILVEIRA on 01/05/211928 Guaifenesin/Pseudoephedrne HCl (Mucinex D ER 600-60 mg Tablet) 1 Each Tab.er.12h, 1 EACH PO BID Prescribed by: KRYSTIAN CARDOZA on 08/22/21913 Prednisone (Prednisone) 20 Mg Tab, 40 MG PO DAILY Prescribed by: KRYSTIAN CARDOZA on 08/22/21912 Review of Systems Review of Systems Constitutional: weakness, weight loss EENTM: No Symptoms Reported Respiratory: No Symptoms Reported Cardiovascular: No Symptoms Reported Gastrointestinal: Abdominal Pain, Diarrhea, Nausea, Poor Fluid Intake, Vomiting Genitourinary: No Symptoms Reported Musculoskeletal: no symptoms reported Skin: dryness, other Psychiatric/Neurological: No Symptoms Reported Endocrine: No Symptoms Reported Hematologic/Lymphatic: No Symptoms Reported (PASCUAL PEREZ MD) Past Csnwxkh-Fvetat-Mblqnt Hx Patient Social History Tobacco Use?: No Substance use?: No Alcohol Use?: No Pt feels they are or have been: No (PASCUAL PEREZ MD) Immunizations Up To Date First/Initial COVID19 Vaccinat: December 2020 (PASCUAL PEREZ MD) Seasonal Allergies Seasonal Allergies: No (PASCUAL PEREZ MD) Past Medical History Surgery/Hospitalization HX: HTN; Chronic Pain Surgeries: Yes (KNEE) Appendectomy, Orthopedic Respiratory: No Cardiac: Yes Coronary Artery Disease, High Cholesterol, Hypertension Neurological: No Genitourinary: Yes Kidney Stones Gastrointestinal: No Musculoskeletal: Yes Arthritis, Chronic Back Pain Endocrine: No HEENT: No Cancer: No Psychosocial: No Blood Disorders: No (PASCUAL PEREZ MD) Family Medical History Heart Disease (PASCUAL PEREZ MD) Physical Exam Vital Signs Vital Signs - First Documented 11/28/21 05:55 Temp 36.3 Pulse 128 Resp 18 B/P (MAP) 133/78 (96) Pulse Ox 97 O2 Delivery Room Air (NELLY MUIR DO) Vital Signs Capillary Refill : (PASCUAL PEREZ MD) Height/Weight/BMI Height: '" Weight: lbs. oz. kg; 33.00 BMI Method: General Appearance: WD/WN, mild distress, obese HEENT: PERRL/EOMI Neck: full range of motion Respiratory: chest non-tender, lungs clear, normal breath sounds, no respiratory distress Cardiovascular: regular rate, rhythm, no murmur Gastrointestinal: normal bowel sounds, soft, no organomegaly, no pulsatile mass, tenderness Extremities: normal range of motion Neurologic/Psychiatric: alert, normal mood/affect, oriented x 3 Skin: normal color, other (mild tenting of skin) Lymphatic: no adenopathy (PASCUAL PEREZ MD) Progress/Results/Core Measures Results/Orders Lab Results Laboratory Tests Test 11/28/21 06:00 11/28/21 06:37 11/28/21 06:40 Range/Units White Blood Count 11.1 H 4.3-11.0 10^3/uL Red Blood Count 5.83 H 4.30-5.52 10^6/uL Hemoglobin 16.4 13.3-17.7 g/dL Hematocrit 48 40-54 % Mean Corpuscular Volume 82 80-99 fL Mean Corpuscular Hemoglobin 28 25-34 pg Mean Corpuscular Hemoglobin Concent 35 32-36 g/dL Red Cell Distribution Width 12.8 10.0-14.5 % Platelet Count 210 130-400 10^3/uL Mean Platelet Volume 9.0 9.0-12.2 fL Immature Granulocyte % (Auto) 0 % Neutrophils (%) (Auto) 90 H 42-75 % Lymphocytes (%) (Auto) 4 L 12-44 % Monocytes (%) (Auto) 5 0-12 % Eosinophils (%) (Auto) 1 0-10 % Basophils (%) (Auto) 0 0-10 % Neutrophils # (Auto) 10.0 H 1.8-7.8 10^3/uL Lymphocytes # (Auto) 0.5 L 1.0-4.0 10^3/uL Monocytes # (Auto) 0.5 0.0-1.0 10^3/uL Eosinophils # (Auto) 0.1 0.0-0.3 10^3/uL Basophils # (Auto) 0.0 0.0-0.1 10^3/uL Immature Granulocyte # (Auto) 0.1 0.0-0.1 10^3/uL Neutrophils % (Manual) 82 % Lymphocytes % (Manual) 5 % Monocytes % (Manual) 6 % Band Neutrophils 4 % Atypical Lymphocytes 2 % Blast Cells 1 % Toxic Granulation 1+ Poikilocytosis SLIGHT Anisocytosis SLIGHT Elliptocytes SLIGHT Sodium Level 137 135-145 MMOL/L Potassium Level 5.3 H 3.6-5.0 MMOL/L Chloride Level 104 98-107 MMOL/L Carbon Dioxide Level 19 L 21-32 MMOL/L Anion Gap 14 5-14 MMOL/L Blood Urea Nitrogen 28 H 7-18 MG/DL Creatinine 1.06 0.60-1.30 MG/DL Estimat Glomerular Filtration Rate 86 BUN/Creatinine Ratio 26 Glucose Level 156 H 70-105 MG/DL Calcium Level 9.7 8.5-10.1 MG/DL Corrected Calcium 8.5-10.1 MG/DL Total Bilirubin 0.7 0.1-1.0 MG/DL Aspartate Amino Transf (AST/SGOT) 15 5-34 U/L Alanine Aminotransferase (ALT/SGPT) 18 0-55 U/L Alkaline Phosphatase 63 40-136 U/L Total Protein 7.8 6.4-8.2 GM/DL Albumin 4.6 H 3.2-4.5 GM/DL Lipase 35 8-78 U/L Urine Color ORANGE Urine Clarity SL CLOUDY Urine pH 6.0 5-9 Urine Specific [place] 1.025 H 1.016-1.022 Urine Protein NEGATIVE NEGATIVE Urine Glucose (UA) NEGATIVE NEGATIVE Urine Ketones NEGATIVE NEGATIVE Urine Nitrite NEGATIVE NEGATIVE Urine Bilirubin 1+ H NEGATIVE Urine Urobilinogen 0.2 < = 1.0 MG/DL Urine Leukocyte Esterase NEGATIVE NEGATIVE Urine RBC (Auto) NEGATIVE NEGATIVE Urine RBC NONE /HPF Urine WBC 2-5 /HPF Urine Squamous Epithelial Cells NONE /HPF Urine Crystals NONE /LPF Urine Bacteria MODERATE H /HPF Urine Casts PRESENT /LPF Urine Hyaline Casts 0-2 H /LPF Urine Mucus MODERATE H /LPF Urine Culture Indicated YES (NELLY MUIR DO) Medications Given in ED Current Medications Medications Dose Ordered Sig/Tracy Route Start Time Stop Time Status Last Admin Dose Admin Iohexol 100 ml ONCE ONCE IV 11/28/21 06:30 11/28/21 06:31 DC 11/28/21 06:30 100 ML Sodium Chloride 100 ml ONCE ONCE IV 11/28/21 06:30 11/28/21 06:31 DC 11/28/21 06:29 100 ML (NELLY MUIR DO) Vital Signs/I&O 11/28/21 05:55 Temp 36.3 Pulse 128 Resp 18 B/P (MAP) 133/78 (96) Pulse Ox 97 O2 Delivery Room Air (NELLY MUIR DO) Progress Progress Note : Progress Note 1. ABDOMINAL PAIN/ DEHYDRATION: - CT ABD - Labs show mild hyperkalemia and white cell count the upper limit of normal with a left shift. - NS IVF bolus/ Zofran iv/ Protonix iv (PASCUAL PEREZ MD) Progress Note : Progress Note Patient CT is consistent with a diarrheal illness. Most likely due to medication side effect and patient admits to eating different diet yesterday due to it being [place] Day. Patient is feeling much better following his IV fluids. Patient has appointment with his primary care provider today at 1030. I did suggest he may consider some Zofran. He should continue his Pepcid. Patient stable and discharged home (NELLY MUIR DO) Diagnostic Imaging Diagonstic Imaging: CT Plain Films/CT/US/NM/MRI: abdomen (PASCUAL PEREZ MD) Comments CT ABDOMEN/PELVIS W PROCEDURE: CT abdomen and pelvis with contrast. TECHNIQUE: Multiple contiguous axial images were obtained through the abdomen and pelvis after administration of intravenous contrast. Auto Exposure Controls were utilized during the CT exam to meet ALARA standards for radiation dose reduction. All CT scans use one or more of the following dose optimizing techniques: automated exposure control, MA and/or KvP adjustment based on patient size and exam type or iterative reconstruction. INDICATION: Nausea, vomiting, diarrhea. Correlated with nonenhanced CT abdomen and pelvis dated 01/05/2021. The lung bases are clear. The liver, gallbladder, bile ducts, spleen, adrenals unremarkable. The pancreas nonfocal and nonacute. No acute fluid collection or peripancreatic edema. The abdominal aorta is patent and nonaneurysmal. No identifiable mesenteric thrombus. No aneurysm or dissection. The appendix surgically absent. There is an elevated intestinal fluid load presumed to reflect a diarrheal state. There is also fluid in the proximal small bowel as well as in the stomach. No significant small or large bowel wall thickening and no perienteric or pericolonic edema. No diverticulitis. Urinary tracts unobstructed. There is stable bilateral renal calculi. No hydroureteronephrosis. No opaque ureteral stone. The urinary bladder was nearly empty. Prostate and seminal vesicles grossly unremarkable. The bony structures nonacute. IMPRESSION: 1. There is an elevated intestinal fluid load likely reflective of hypermobile/diarrheal state and may reflect nonspecific enterocolitis. No segmental bowel wall thickening. No focal inflammatory process. No obstruction, perforation or acute arterial pathology. 2. Chronic nonobstructing nephrolithiasis. Reviewed: Reviewed by Me, Reviewed/Discussed (NELLY MUIR DO) Transfer of Care Time: 07:00 Care transferred to: Dr. Muir (PASCUAL PEREZ MD) Departure Impression Primary Impression: Diarrhea Qualified Codes: K59.1 - Functional diarrhea Additional Impression: Medication reaction Qualified Codes: T50.905A - Adverse effect of unspecified drugs, medicaments and biological substances, initial encounter Disposition: 01 HOME, SELF-CARE Condition: Stable Departure-Patient Inst. Referrals: ANANYA VILLELA (PCP) Primary Care Physician NO,LOCAL PHYSICIAN (Family) Primary Care Physician Patient Instructions: Dealing with Diarrhea from the Drugs You Take Add. Discharge Instructions: Drink plenty of fluids You may discuss with your primary care provider the addition of Zofran as needed Continue taking imjx-gva-ilvhdly Pepcid All discharge instructions reviewed with patient and/or family. Voiced understanding. PASCUAL PEREZ MD Nov 28, 2021 06:29 NELLY MUIR DO Nov 28, 2021 07:28
[2021-11-28] MEDS ORDERED: HOLD METFORMIN - RECEIVED CONTRAST 20 ML VIAL IV SCH (06:30)
[2021-11-28] MEDS ORDERED: IOHEXOL 350 MG/ML 150 ML (OMNIPAQUE 350) VIAL IV ONE (06:30)
[2021-11-28] MEDS ORDERED: NS 100 ML (IVPB) BAG IV ONE (06:30)
[2021-11-28] MEDS ORDERED: PANTOPRAZOLE 40 MG (PROTONIX) VIAL IV NR (06:30)
[2021-11-28] MEDS ORDERED: ONDANSETRON 4 MG/2 ML (SDV) Z0FRAN IVP NR (06:30)
[2021-11-28 06:36] LABS: ALANINE AMINOTRANSFERASE 18 U/L (0-55); ALBUMIN 4.6 GM/DL (3.2-4.5); ALKALINE PHOSPHATASE 63 U/L (40-136); BILIRUBIN,TOTAL 0.7 MG/DL (0.1-1.0); BUN/CREATININE RATIO 26; CALCIUM 9.7 MG/DL (8.5-10.1); CARBON DIOXIDE 19 MMOL/L (21-32); CHLORIDE 104 MMOL/L (98-107); CREATININE SERUM 1.06 MG/DL (0.60-1.30); GFR ESTIMATED 86; GLUCOSE 156 MG/DL (70-105); LIPASE 35 U/L (8-78); POTASSIUM 5.3 MMOL/L (3.6-5.0); SODIUM 137 MMOL/L (135-145); TOTAL PROTEIN 7.8 GM/DL (6.4-8.2)
[2021-11-28 06:42] LABS: BILIRUBIN,URINE 1+ (NEGATIVE); CLARITY,URINE SL CLOUDY; COLOR,URINE ORANGE; GLUCOSE, URINE (UA) NEGATIVE (NEGATIVE); KETONES,URINE NEGATIVE (NEGATIVE); LEUKOCYTE ESTERASE ,URINE NEGATIVE (NEGATIVE); NITRITE,URINE NEGATIVE (NEGATIVE); PROTEIN,URINE NEGATIVE (NEGATIVE)
[2021-11-28 06:54] LABS: BACTERIA,URINE MODERATE /HPF; HYALINE CASTS, URINE 0-2 /LPF
[2021-11-28 06:55] LABS: ATYPICAL LYMPHOCYTES 2 %; BAND NEUTROPHILS 4 %; BLAST CELLS 1 %; LYMPHOCYTES % (MANUAL) 5 %; MONOCYTES % (MANUAL) 6 %; NEUTROPHILS % (MANUAL) 82 %
[2021-11-28 06:57] LABS: ANISOCYTOSIS SLIGHT; ELLIPT/OVALOCYTES SLIGHT; POIKILOCYTOSIS SLIGHT; TOXIC GRANULATION/VACUOLAZATIO 1+
--- NOTE | 2021-11-28 07:06 | Diagnostic Imaging Report ---
PROCEDURE: CT abdomen and pelvis with contrast. TECHNIQUE: Multiple contiguous axial images were obtained through the abdomen and pelvis after administration of intravenous contrast. Auto Exposure Controls were utilized during the CT exam to meet ALARA standards for radiation dose reduction. All CT scans use one or more of the following dose optimizing techniques: automated exposure control, MA and/or KvP adjustment based on patient size and exam type or iterative reconstruction. INDICATION: Nausea, vomiting, diarrhea. Correlated with nonenhanced CT abdomen and pelvis dated 01/05/2021. The lung bases are clear. The liver, gallbladder, bile ducts, spleen, adrenals unremarkable. The pancreas nonfocal and nonacute. No acute fluid collection or peripancreatic edema. The abdominal aorta is patent and nonaneurysmal. No identifiable mesenteric thrombus. No aneurysm or dissection. The appendix surgically absent. There is an elevated intestinal fluid load presumed to reflect a diarrheal state. There is also fluid in the proximal small bowel as well as in the stomach. No significant small or large bowel wall thickening and no perienteric or pericolonic edema. No diverticulitis. Urinary tracts unobstructed. There is stable bilateral renal calculi. No hydroureteronephrosis. No opaque ureteral stone. The urinary bladder was nearly empty. Prostate and seminal vesicles grossly unremarkable. The bony structures nonacute. IMPRESSION: 1. There is an elevated intestinal fluid load likely reflective of hypermobile/diarrheal state and may reflect nonspecific enterocolitis. No segmental bowel wall thickening. No focal inflammatory process. No obstruction, perforation or acute arterial pathology. 2. Chronic nonobstructing nephrolithiasis. Dictated by: Dictated on workstation # [id number]
[2021-11-28 07:52] VITALS: BP 112/75
== END 2021-11-28 07:52 | disposition home or self-care (01) ==
LOC: EDUNIT# 05:49 → ER FS 05:50
DX: R19.7 Diarrhea, unspecified (principal); T50.995A Adverse effect of other drugs, medicaments and biological substances, initial encounter; E66.9 Obesity, unspecified; I10 Essential (primary) hypertension; Z20.822 Contact with and (suspected) exposure to COVID-19; Z68.33 Body mass index [BMI] 33.0-33.9, adult
CPT/HCPCS: 36415; 74177; 80053; 81000; 83690; 85007; 85027; 87088; 87635

== ENCOUNTER 2023-03-10 07:53 | Emergency (ER) | payer OTHER ==
[~2023-03-10] VITALS: Ht 172.7 cm; Wt 104.0 kg
[~2023-03-10 07:53] MED LIST changes: +ALBU8.5H6 IH; -RT-ALBUINH IH
[2023-03-10 08:04] VITALS: BP 141/100
--- NOTE | 2023-03-10 08:12 | ED GU-Male ---
General Chief Complaint: - Reproductive Stated Complaint: MARY BETH GROIN SWELLING; TESTICLE PAIN Nursing Triage Note: Patient states he had left groin pain/tenderness on Saturday, then bilateral groin pain/tenderness since . Source: patient, family () Exam Limitations: no limitations History of Present Illness Date Seen by Provider: March 10, 2023 Time Seen by Provider: 08:05 Initial Comments 52-year-old male presents to the emergency department today for bilateral groin pain. It started as left-sided groin pain on Saturday and progressed to become bilateral more recently. He has noticed some swelling in the area. No penile or testicular symptoms. He has had a vasectomy. No new sexual partners. No urinary symptoms. No changes in his bowels. No saddle anesthesias. All other systems reviewed and negative except documented per HPI. Voice recognition software was used to help create this chart Allergies and Home Medications Allergies Coded Allergies: Ralqjkl-GQP-HoO Reductase Inhibitor (Verified Allergy, Unknown, 03/10/23) hydrocodone (Verified Allergy, Unknown, 03/10/23) Patient Home Medication List Home Medication List Reviewed: Yes Albuterol Sulfate (Ventolin Hfa) 1 Puff Puff, 2 PUFF IH Q4H Prescribed by: KRYSTIAN CARDOZA on 08/22/21912 Azithromycin (Zithromax) 250 Mg Tablet, 250 MG PO UD Prescribed by: KRYSTIAN CARDOZA on 08/22/21912 Cephalexin (Cephalexin) 500 Mg Tablet, 500 MG PO BID Prescribed by: SIENNA SILVEIRA on 01/05/211928 Guaifenesin/Pseudoephedrne HCl (Mucinex D ER 600-60 mg Tablet) 1 Each Tab.er.12h, 1 EACH PO BID Prescribed by: KRYSTIAN CARDOZA on 08/22/21913 Prednisone (Prednisone) 20 Mg Tab, 40 MG PO DAILY Prescribed by: KRYSTIAN CARDOZA on 08/22/21912 Review of Systems Review of Systems Constitutional: see HPI Past Eojuwng-Pyokjc-Edwxrp Hx Patient Social History Tobacco Use?: No Substance use?: No Alcohol Use?: No Pt feels they are or have been: No Immunizations Up To Date First/Initial COVID19 Vaccinat: December 2020 Second COVID19 Vaccination Saurav: December 2020 Third COVID19 Vaccination Date: December 2020 Seasonal Allergies Seasonal Allergies: No Past Medical History Surgery/Hospitalization HX: HTN; Chronic Pain Surgeries: Yes (KNEE) Appendectomy, Orthopedic Respiratory: No Cardiac: Yes Coronary Artery Disease, High Cholesterol, Hypertension Neurological: No Genitourinary: Yes Kidney Stones Gastrointestinal: No Musculoskeletal: Yes Arthritis, Chronic Back Pain Endocrine: No HEENT: No Cancer: No Psychosocial: No Blood Disorders: No Family Medical History Heart Disease Physical Exam Vital Signs Vital Signs - First Documented 03/10/23 08:04 Temp 36.3 Pulse 95 Resp 18 B/P (MAP) 141/100 (114) Pulse Ox 100 O2 Delivery Room Air Capillary Refill : Less Than 3 Seconds Height, Weight, BMI Height: '" Weight: lbs. oz. kg; 34.00 BMI Method: General Appearance: WD/WN, no apparent distress Gastrointestinal: normal bowel sounds, non tender, soft, no organomegaly, tenderness (Tenderness palpation of the bilateral groin region. No effusion with scant approximately 1 cm lymph nodes palpable that are somewhat tender to palpation. No overlying erythema. No penile discharge. No testicular pain) Extremities: normal range of motion Neurologic/Psychiatric: alert, oriented x 3 Skin: normal color, warm/dry Lymphatic: inguinal node tender (R), inguinal node tender (L) Progress/Results/Core Measures Suspected Sepsis SIRS Temperature: Pulse: 95 Respiratory Rate: 18 Blood Pressure 141 /100 Mean: 114 Results/Orders Lab Results Laboratory Tests Test 03/10/23 08:10 Range/Units Urine Color YELLOW Urine Clarity CLEAR Urine pH 5.5 5-9 Urine Specific [place] 1.020 1.016-1.022 Urine Protein NEGATIVE NEGATIVE Urine Glucose (UA) 2+ H NEGATIVE Urine Ketones NEGATIVE NEGATIVE Urine Nitrite NEGATIVE NEGATIVE Urine Bilirubin NEGATIVE NEGATIVE Urine Urobilinogen 0.2 < = 1.0 MG/DL Urine Leukocyte Esterase NEGATIVE NEGATIVE Urine RBC (Auto) TRACE-I H NEGATIVE Urine RBC NONE /HPF Urine WBC NONE /HPF Urine Squamous Epithelial Cells 0-2 /HPF Urine Crystals NONE /LPF Urine Bacteria NEGATIVE /HPF Urine Casts PRESENT /LPF Urine Hyaline Casts 0-2 H /LPF Urine Mucus SMALL H /LPF Urine Culture Indicated NO My Orders Orders - ODETTE LINTON DO Ua Culture If Indicated (03/10/23 08:01) Vital Signs/I&O 03/10/23 08:04 Temp 36.3 Pulse 95 Resp 18 B/P (MAP) 141/100 (114) Pulse Ox 100 O2 Delivery Room Air Capillary Refill : Less Than 3 Seconds Blood Pressure Mean: 114 Departure Communication (Admissions) Patient has what appears to be bilateral inguinal lymphadenopathy. All lymph nodes are subcentimeter, mildly tender to palpation with no overlying skin changes. Urine is clear no evidence for infection. No risk factors for STI per his report. Symptoms are very short-term. I advised that if they continue for another week or so to get an ultrasound scheduled for further evaluation and treatment recommendation. Recommended anti-inflammatory medications as needed for pain. He will return to the emergency department for fevers, redness overlying or for symptoms change in any way concerning to him. [facility] other [facility]. No indicatio n for emergent imaging at this time. Impression Primary Impression: Inguinal lymphadenopathy Disposition: 01 HOME, SELF-CARE Condition: Stable Departure-Patient Inst. Referrals: NO,LOCAL PHYSICIAN (PCP/Family) Primary Care Physician Patient Instructions: Lymphadenitis (DC) Add. Discharge Instructions: Take anti-inflammatory medication such as Motrin or Aleve as needed for this type of pain. Your urine is clear today, no evidence for infection there. If your symptoms persist I recommend you get an ultrasound for further evaluation of the lymph nodes in your groin. Return to the emergency department for any severe concerns. All discharge instructions reviewed with patient and/or family. Voiced understanding. ODETTE LINTON DO March 10, 2023 08:12
[2023-03-10 08:14] LABS: BILIRUBIN,URINE NEGATIVE (NEGATIVE); CLARITY,URINE CLEAR; COLOR,URINE YELLOW; GLUCOSE, URINE (UA) 2+ (NEGATIVE); KETONES,URINE NEGATIVE (NEGATIVE); LEUKOCYTE ESTERASE ,URINE NEGATIVE (NEGATIVE); NITRITE,URINE NEGATIVE (NEGATIVE); PH,URINE 5.5 (5-9); PROTEIN,URINE NEGATIVE (NEGATIVE)
[2023-03-10 08:17] LABS: BACTERIA,URINE NEGATIVE /HPF
[2023-03-10 08:18] LABS: HYALINE CASTS, URINE 0-2 /LPF; SQUAMOUS EPITHELIAL CELL,UR 0-2 /HPF
== END 2023-03-10 08:27 | disposition home or self-care (01) ==
LOC: EDUNIT# 07:53 → ER FS 07:55
DX: R59.0 Localized enlarged lymph nodes (principal); Z90.49 Acquired absence of other specified parts of digestive tract
CPT/HCPCS: 81000; 99282